=== PATIENT | male | born 1955 | race Caucasian/White ===

== ENCOUNTER 2023-10-04 18:47 | Emergency (ER) | payer OTHER, SELFPAY ==
[2023-10-04 18:50] VITALS: BP 146/81; BMI 38.2
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
== END 2023-10-04 21:19 | disposition home or self-care (01) ==
LOC: EMR 18:47
PROVIDERS: EMERGENCY PHYSICIAN Emergency Medicine; FAMILY PHYSICIAN Family Medicine
DX: R04.0 Epistaxis (principal); E78.00 Pure hypercholesterolemia, unspecified
CPT/HCPCS: 99282; 30901

== ENCOUNTER 2025-02-28 09:09 | Emergency (ER) | payer SELFPAY ==
[2025-02-28 09:24] VITALS: BP 176/97
--- NOTE | 2025-02-28 10:22 | ED.GENMED ---
History of Present Illness
General
Chief Complaint: Skin Surface Trauma
Time Seen by Provider: 02/28/25 09:40
History of Present Illness
History of Present Illness:
69-year-old male presents to the emergency department for evaluation of a right thumb laceration sustained in the chain. He is able to move the thumb and denies distal paresthesias. Last tetanus unknown
Past History
Past History
ED Past Medical History: Hypercholesterolemia
ED Past Surgical History: Other (Endovascular AAA)
Social History
Tobacco: Non-smoker
Alcohol: None
Drug: None
Personal:
Living: with family
Employment: Employed
Review of Systems
Review of Systems
Allergies reviewed?: Yes
All Other Systems: ROS reviewed and negative except as documented in HPI and ROS
Phy Exam
Physical Exam
Physical Exam:
GEN: Well appearing, NAD, WDWN
HEENT: Oral mucosa moist, no scleral icterus
Cardiac: Regular rate
Lung: No respiratory distress, no tachypnea
MSK: No gross deformity or injuries
Skin: Good color, no pallor or jaundice, no rashes. 3 cm curvilinear laceration to the flexor surface of the proximal phalanx of the right thumb, no visible tendon injury, flexion and extension fully intact at both the MCP and IP joint
Neuro: AO x3, moves all extremities freely
Psych: Calm, cooperative
Course
Orders/Labs/Results
Orders:
Orders
02/28/25 09:20
CR Hand - Right Min 3 Views Urgent
Comment:
Reason For Exam: lac
02/28/25 10:22
Tetanus/Diphth/Acelpertussis [Adacel] 0.5 ml IM .ONCE ONE
Vital Signs
Initial and Last Documented VS:
Initial Vital Signs
Temp Pulse Resp BP Pulse Ox
98.7 F 70 20 176/97 96
02/28/25 09:24 10/09/25 09:24 02/28/25 09:24 02/28/25 09:24 02/28/25 09:24
Last Documented Vital Signs
Temp Pulse Resp BP Pulse Ox
98.7 F 70 20 176/97 96
02/28/25 09:24 02/28/25 09:24 02/28/25 09:24 02/28/25 09:24 02/28/25 10:24
Procedures
Laceration Closure
Right thumb:
Status of Wound: dirty
Size of Wound in cm: 3
Description of Wound Edges: sharp
Preparation: cleaned with saline
Wound exploration: explored to base- no FB and no tendon involvement
Type of Closure: single layer closure
Skin Closure Material: 5-0 nylon
Number of sutures: 13
MDM/Problems Addressed
MDM/Problems Addressed:
X-rays of the thumb independently interpreted by me negative for fracture. External closure performed with 13 sutures, there is no clinical evidence for tendon injury. Discussed supportive care and wound care guidelines
*Pulse Oximetry
SaO2: 96
Oxygen Mode of Delivery: Room air
Patient hypoxic: no
*Critical Care Note
Total Time (30-74mins, 75-104mins- exclusive of procedures): Not Applicable
ED Attending Note
-
Portions of this chart may have been created with voice recognition software.� Occasional wrong word or��sound alike� substitutions may have occurred due to the inherent limitations of voice recognition software.
Discharge Plan
Departure
Patient Disposition: Home (Routine Discharge)
Date of Disposition: 02/28/25
Time of Disposition: 10:23
Patient with high blood pressure during this ER visit?: No
Discharge Problem:
Laceration of right thumb
Instructions: Laceration Repair With Stitches (DC)
Referrals:
Tu Parikh MD [Family Provider, Family Practice]
Activity Restrictions/Additional Instructions:
Keep wound dry for the next 24 hours, then begin to wash on a daily basis with simple soap and water. Keep the wound covered at all times and change the dressing each day. Apply either petroleum gauze or Neosporin/Vaseline prior to applying a
dressing. You may use the right hand however do not carry heavy objects with the right hand. Follow-up with your primary doctor or urgent care in 10 to 14 days for suture removal
Interventions
Interventions:
*Risk Screen - Suicide Last Done: 02/28/25 09:10
*General Assessment Last Done: 02/28/25 09:10
*Neglect/Abuse Screening Last Done: 02/28/25 09:10
*Nursing Disposition Last Done: 02/28/25 10:45
ED-Skin Assessment Last Done: 02/28/25 10:00
Discharge Date and Time
Discharge Date/Time: 02/28/25 10:46
Print Language: [place]
[2025-02-28] MEDS: ADACEL 0.5 ML IM (10:33)
== END 2025-02-28 10:46 | disposition home or self-care (01) ==
LOC: EMR 09:09
PROVIDERS: EMERGENCY PHYSICIAN Emergency Medicine; FAMILY PHYSICIAN Family Medicine
DX: S61.011A Laceration without foreign body of right thumb without damage to nail, initial encounter (principal); W45.8XXA Other foreign body or object entering through skin, initial encounter; Z23 Encounter for immunization; E78.00 Pure hypercholesterolemia, unspecified; Z86.79 Personal history of other diseases of the circulatory system
CPT/HCPCS: 99283; 12002; 90471; 73130; 90715